=== PATIENT | female | born 1980 | race African-American/Black ===

== ENCOUNTER 2022-04-11 08:58 | Emergency (ER) | payer OTHER ==
[~2022-04-11] VITALS: Ht 172.7 cm; Wt 80.0 kg
[2022-04-11 09:04] VITALS: BP 229/109
[2022-04-11] MEDS ORDERED: LISINOPRIL 20MG TABLET PO ONE (09:30)
== END 2022-04-11 09:30 ==
LOC: ER 08:58
DX: I10 Essential (primary) hypertension (principal); E11.9 Type 2 diabetes mellitus without complications; Z79.899 Other long term (current) drug therapy; Z65.3 Problems related to other legal circumstances
CPT/HCPCS: 99283